=== PATIENT | female | born 1965 | race Asian ===

== ENCOUNTER 2023-01-31 06:40 | Day surgery (SDC) | payer MEDICAID ==
[~2023-01-31] VITALS: Ht 160 cm; Wt 81.6 kg
[~2023-01-31 06:40] MED LIST: LIP20 PO; LOSA50TA3 PO; METR500T PO; VITD400 PO
[2023-01-31] MEDS ORDERED: MEPERIDINE 50 MG/ML VIAL ONE (07:49)
[2023-01-31] MEDS: MIDAZOLAM HCL 5 MG/5 ML VIAL ONE ×3 (09:57→10:03)
[2023-01-31] MEDS: MEPERIDINE 50 MG/ML VIAL ONE ×2 (10:00→10:10)
[2023-01-31 11:29] VITALS: BP_SYST 103
== END 2023-01-31 12:00 | disposition home or self-care (01) ==
LOC: SDS 06:40 → SMU 06:41 → SDS 12:00
PROVIDERS: ATTEND Internal Medicine Gastroenterology
DX: K92.1 Melena (principal); D12.2 Benign neoplasm of ascending colon; K57.30 Diverticulosis of large intestine without perforation or abscess without bleeding; K64.9 Unspecified hemorrhoids; Z86.010 Personal history of colon polyps; I10 Essential (primary) hypertension; E78.5 Hyperlipidemia, unspecified; Z79.899 Other long term (current) drug therapy; Z20.822 Contact with and (suspected) exposure to COVID-19
CPT/HCPCS: 45385; 87426; 36415; 88305; 99152; G0378; J2250; J2175

== ENCOUNTER 2023-04-22 08:00 | Emergency (ER) | payer MEDICAID ==
[2023-04-22 08:17] VITALS: BP_SYST 139
--- NOTE | 2023-04-22 08:20 | NUR ---
PT TRIGAGED, PT PLACED ON BED 7, REPORT GIVEN TO NURSEMARILOU.
--- NOTE | 2023-04-22 08:23 | NUR ---
DR HECTOR AT BEDSIDE
--- NOTE | 2023-04-22 08:25 | NUR ---
PATIENT BIB C/O HEADACHES WITH N/V, LOW BACK PAIN 4/10 & PAINFUL URINATION X 3 DAYS. MED HX HTN, HLD & FATTY LIVER. NKA. VSS.
--- NOTE | 2023-04-22 08:29 | NUR ---
PHLEBOTOMY AT BEDSIDE OBTAINING BLOOD SAMPLES
[2023-04-22] MEDS ORDERED: ONDANSETRON 4 MG ODT TAB PO ONE (08:30)
[2023-04-22] MEDS ORDERED: KETOROLAC TROMETHAMINE 60 MG/2 ML VIAL IM ONE (08:30)
[2023-04-22 08:38] LABS: ERYTHROCYTE SEDIMENTATION RATE 32 MM/HR (0-20)
[2023-04-22 08:40] LABS: BASOPHILS % (AUTO) 0.6 % (0.0-2.0); EOSINOPHILS # (AUTO) 0.2 K/uL (0.0-0.4); EOSINOPHILS % (AUTO) 2.9 % (0.0-4.0); HEMATOCRIT 37.7 % (36-48); HEMOGLOBIN 12.6 g/dL (12.0-16.0); LYMPHOCYTES # (AUTO) 1.7 K/uL (1.0-5.5); LYMPHOCYTES % (AUTO) 23.1 % (20.5-51.5); MEAN CORPUSCULAR HEMOGLOBIN 31 pg (27-31); MEAN CORPUSCULAR HGB CONC 34 % (32-36); MEAN CORPUSCULAR VOLUME 93 fL (79.0-98.0); MONOCYTES # (AUTO) 0.6 K/uL (0.0-1.0); MONOCYTES % (AUTO) 7.5 % (1.7-9.3); NEUTROPHILS % (AUTO) 65.9 % (40.0-70.0); PLATELET COUNT (AUTO) 331 K/uL (130-430); RED BLOOD CELL COUNT(AUTO) 4.07 MIL/uL (4.2-6.2); RED CELL DISTRIBUTION WIDTH 12.9 % (9.0-15.0); WHITE BLOOD COUNT (AUTO) 7.5 K/uL (4.8-10.8)
--- NOTE | 2023-04-22 08:46 | NUR ---
PATIENT TO RADIOLOGY FOR CT SCAN
[2023-04-22 08:56] LABS: CALCIUM 8.8 mg/dL (8.4-11.0); CREATININE 0.85 mg/dL (0.55-1.30)
[2023-04-22 09:01] LABS: ALBUMIN 3.6 g/dL (3.4-4.8); C-REACTIVE PROTEIN QUANT 1.7 mg/dL (0-0.5); TOTAL BILIRUBIN 0.6 mg/dL (0.0-1.0)
[2023-04-22 09:10] VITALS: BP_SYST 111
--- NOTE | 2023-04-22 09:10 | NUR ---
Patient given written and verbal discharge instructions and verbalizes understanding. ER MD HECTOR discussed with patient the results and treatment provided. Patient in stable condition. ID arm band removed. Rx of IBUPROFEN, TRAMADOL given. Patient educated on pain management and to follow up with PMD. Pain Scale 1/10. Opportunity for questions provided and answered. Medication side effect fact sheet provided.
[2023-04-22] MEDS ORDERED: TRAM50TA2 PO (09:27)
[2023-04-22] MEDS ORDERED: IBUP-1969 PO (09:27)
== END 2023-04-22 09:10 | disposition home or self-care (01) ==
LOC: SED 08:00
DX: R51.9 Headache, unspecified (principal); R42 Dizziness and giddiness; R11.2 Nausea with vomiting, unspecified; I10 Essential (primary) hypertension; Z79.899 Other long term (current) drug therapy
CPT/HCPCS: 99285; 70450; 80053; 85025; 85651; 86140; 36415; 76376; 96372; Q0162; J1885

== ENCOUNTER 2023-11-17 17:02 | Emergency (ER) | payer MEDICAID ==
[~2023-11-17] VITALS: Ht 157.5 cm; Wt 81.6 kg
[~2023-11-17 17:02] MED LIST changes: +IBUP-1969 PO; +LOSA-413 PO; -LOSA50TA3 PO; +TRAM50TA2 PO
[2023-11-17 17:20] VITALS: BP_SYST 135; PULSE 89; RESP 18; TEMP 97.8; O2SAT 98
[2023-11-17 17:56] LABS: BILIRUBIN,URINE NEGATIVE (NEGATIVE); CLARITY/URINE SL CLOUDY (CLEAR); COLOR,URINE YELLOW (YELLOW); GLUCOSE,URINE NEGATIVE (NEGATIVE); KETONES,URINE NEGATIVE (NEGATIVE); LEUKOCYTE ESTERASE ,URINE TRACE (NEGATIVE); NITRITE, URINE POSITIVE (NEGATIVE); PROTEIN URINE TRACE (NEGATIVE); UROBILINOGEN,URINE 0.2 (0.2-1.0)
[2023-11-17 17:59] LABS: BLOOD, URINE TRACE (NEGATIVE)
[2023-11-17 18:04] LABS: BACTERIA,URINE MANY /HPF (None Seen); HYALINE CASTS, URINE 0-10 /LPF (None Seen); MUCUS,URINE 1+ /LPF (None Seen)
[2023-11-17] MEDS ORDERED: CEPH-548 PO (20:07)
[2023-11-17 20:18] VITALS: BP_SYST 133; PULSE 85; RESP 18; TEMP 97.9; O2SAT 98
== END 2023-11-17 20:18 | disposition home or self-care (01) ==
LOC: SED 17:02
DX: N39.0 Urinary tract infection, site not specified (principal); R10.30 Lower abdominal pain, unspecified; R30.0 Dysuria; I10 Essential (primary) hypertension; Z79.899 Other long term (current) drug therapy
CPT/HCPCS: 81000; 81001; 81015; 87086; 99283

== ENCOUNTER 2023-11-30 15:40 | Emergency (ER) | payer MEDICAID ==
[~2023-11-30] VITALS: Ht 157.5 cm; Wt 81.6 kg
[~2023-11-30 15:40] MED LIST changes: +CEPH-548 PO
[2023-11-30 15:59] VITALS: BP_SYST 136; PULSE 106; RESP 18; TEMP 97.8; O2SAT 97
[2023-11-30 16:30] LABS: BILIRUBIN,URINE NEGATIVE (NEGATIVE); BLOOD, URINE NEGATIVE (NEGATIVE); CLARITY/URINE CLEAR (CLEAR); COLOR,URINE YELLOW (YELLOW); GLUCOSE,URINE NEGATIVE (NEGATIVE); KETONES,URINE NEGATIVE (NEGATIVE); LEUKOCYTE ESTERASE ,URINE NEGATIVE (NEGATIVE); NITRITE, URINE NEGATIVE (NEGATIVE); PROTEIN URINE NEGATIVE (NEGATIVE); UROBILINOGEN,URINE 0.2 (0.2-1.0)
[2023-11-30 16:47] LABS: BASOPHILS % (AUTO) 0.7 % (0.0-2.0); EOSINOPHILS # (AUTO) 0.1 K/uL (0.0-0.4); EOSINOPHILS % (AUTO) 2.3 % (0.0-4.0); HEMATOCRIT 37.3 % (36-48); HEMOGLOBIN 12.9 g/dL (12.0-16.0); LYMPHOCYTES # (AUTO) 1.8 K/uL (1.0-5.5); LYMPHOCYTES % (AUTO) 28.2 % (20.5-51.5); MEAN CORPUSCULAR HEMOGLOBIN 32 pg (27-31); MEAN CORPUSCULAR HGB CONC 35 % (32-36); MEAN CORPUSCULAR VOLUME 91 fL (79.0-98.0); MONOCYTES # (AUTO) 0.7 K/uL (0.0-1.0); MONOCYTES % (AUTO) 11.2 % (1.7-9.3); NEUTROPHILS # (AUTO) 3.6 K/uL (1.8-7.7); NEUTROPHILS % (AUTO) 57.6 % (40.0-70.0); PLATELET COUNT (AUTO) 367 K/uL (130-430); RED BLOOD CELL COUNT(AUTO) 4.08 MIL/uL (4.2-6.2); RED CELL DISTRIBUTION WIDTH 12.9 % (9.0-15.0); WHITE BLOOD COUNT (AUTO) 6.2 K/uL (4.8-10.8)
[2023-11-30 17:08] LABS: CALCIUM 9.2 mg/dL (8.4-11.0); CREATININE 0.72 mg/dL (0.55-1.30); POTASSIUM 3.5 mmol/L (3.5-5.1)
[2023-11-30 18:01] VITALS: BP_SYST 136; PULSE 106; RESP 18; TEMP 97.8; O2SAT 97
== END 2023-11-30 18:01 | disposition home or self-care (01) ==
LOC: SED 15:40
DX: R10.2 Pelvic and perineal pain (principal); I10 Essential (primary) hypertension; Z79.899 Other long term (current) drug therapy
CPT/HCPCS: 36415; 76376; 80048; 81001; 81003; 85025; 99284

== ENCOUNTER 2024-01-02 11:36 | Emergency (ER) | payer MEDICAID ==
[~2024-01-02] VITALS: Ht 157.5 cm; Wt 81.6 kg
[2024-01-02 11:40] VITALS: BP_SYST 161; PULSE 102; RESP 19; TEMP 98.2; O2SAT 97
[2024-01-02 12:37] LABS: COVID19 ANTIGEN SOFIA FIA NEGATIVE (NEGATIVE)
[2024-01-02 12:38] LABS: INFLUENZA TYPE A Negative (NEGATIVE); INFLUENZA TYPE B NEGATIVE (NEGATIVE)
[2024-01-02] MEDS ORDERED: BENZ100C92 PO (13:29)
[2024-01-02] MEDS ORDERED: AZIT-93 PO (13:29)
[2024-01-02 13:41] VITALS: BP_SYST 152; PULSE 92; RESP 18; TEMP 98.2; O2SAT 98
== END 2024-01-02 13:41 | disposition home or self-care (01) ==
LOC: SED 11:36
DX: R05.9 Cough, unspecified (principal); R09.89 Other specified symptoms and signs involving the circulatory and respiratory systems; I10 Essential (primary) hypertension; Z79.899 Other long term (current) drug therapy; Z20.822 Contact with and (suspected) exposure to COVID-19
CPT/HCPCS: 36415; 71045; 99284

== ENCOUNTER 2024-04-08 02:38 | Emergency (ER) | payer MEDICAID ==
[~2024-04-08] VITALS: Ht 157.5 cm; Wt 81.6 kg
[~2024-04-08 02:38] MED LIST changes: +AZIT-93 PO; +BENZ100C92 PO
[2024-04-08 02:41] VITALS: BP_SYST 137; PULSE 81; RESP 18; TEMP 97.1; O2SAT 97
[2024-04-08] MEDS: ASPIRIN 325 MG TABLET PO ONE (03:16)
[2024-04-08] MEDS: NITROGLYCERIN 1 INCH (GM) OINT. TP ONE (03:20)
[2024-04-08 03:36] LABS: BASOPHILS # (AUTO) 0.1 K/uL (0.0-0.2); BASOPHILS % (AUTO) 0.8 % (0.0-2.0); EOSINOPHILS # (AUTO) 0.2 K/uL (0.0-0.4); EOSINOPHILS % (AUTO) 2.5 % (0.0-4.0); HEMATOCRIT 38.5 % (36-48); HEMOGLOBIN 13.2 g/dL (12.0-16.0); LYMPHOCYTES # (AUTO) 2.7 K/uL (1.0-5.5); LYMPHOCYTES % (AUTO) 33.6 % (20.5-51.5); MEAN CORPUSCULAR HEMOGLOBIN 32 pg (27-31); MEAN CORPUSCULAR HGB CONC 34 % (32-36); MEAN CORPUSCULAR VOLUME 93 fL (79.0-98.0); MONOCYTES # (AUTO) 0.9 K/uL (0.0-1.0); MONOCYTES % (AUTO) 10.9 % (1.7-9.3); NEUTROPHILS # (AUTO) 4.3 K/uL (1.8-7.7); NEUTROPHILS % (AUTO) 52.2 % (40.0-70.0); PLATELET COUNT (AUTO) 373 K/uL (130-430); RED BLOOD CELL COUNT(AUTO) 4.16 MIL/uL (4.2-6.2); RED CELL DISTRIBUTION WIDTH 12.8 % (9.0-15.0); WHITE BLOOD COUNT (AUTO) 8.2 K/uL (4.8-10.8)
[2024-04-08 03:41] LABS: ALANINE AMINOTRANSFERASE 60 U/L (12-78); ALBUMIN 3.7 g/dL (3.4-4.8); ANION GAP 8 (5-15); ASPARTATE AMINOTRANSFERASE 34 U/L (10-37); BILIRUBIN,DIRECT 0.1 mg/dL (0.0-0.3); CALCIUM 8.9 mg/dL (8.4-11.0); CARBON DIOXIDE 29 mmol/L (23-29); CHLORIDE 103 mmol/L (98-107); CREATININE 0.88 mg/dL (0.55-1.30); GFR AFRICAN AMERICAN 84 mL/min (>90); GFR NON AFRICAN-AMERICAN 70 mL/min (>90); GLUCOSE 104 mg/dL (74-106); SODIUM SERUM 140 mmol/L (136-145); TOTAL BILIRUBIN 0.4 mg/dL (0.0-1.0); UREA NITROGEN, BLOOD 14 mg/dL (8-21)
[2024-04-08 06:59] VITALS: BP_SYST 137; PULSE 77; RESP 18; TEMP 98.6; O2SAT 98
== END 2024-04-08 07:01 | disposition home or self-care (01) ==
LOC: SED 02:38
DX: R07.9 Chest pain, unspecified (principal); I10 Essential (primary) hypertension; Z79.899 Other long term (current) drug therapy; Z79.2 Long term (current) use of antibiotics
CPT/HCPCS: 36415; 71045; 80048; 80076; 84484; 85025; 99285